=== PATIENT | female | born 1930 | race Caucasian/White ===

== ENCOUNTER 2016-04-01 12:06 | Emergency (ER) | payer MEDICARE, BC ==
[2016-04-01 12:18] VITALS: RESP 18; TEMP 97.9
[2016-04-01 13:41] VITALS: BP 112/64; PULSE 60; O2SAT 92
== END 2016-04-01 13:30 | DRG 556 ==
LOC: ED 12:06
DX: M25.552 Pain in left hip (principal)
CPT/HCPCS: 73502; 99282; 99283

== ENCOUNTER 2016-05-13 20:08 | Emergency (ER) | payer MEDICARE, BC ==
[2016-05-13 20:33] VITALS: RESP 18; TEMP 97.8
[2016-05-13 20:45] LABS: BASOPHILS % (AUTO) 1 % (0-3); EOSINOPHILS % (AUTO) 2 % (0-9); HEMATOCRIT 43 % (35-47); MEAN CORPUSCULAR HGB CONC 32.3 gm/dl (32.0-36.0); MEAN CORPUSCULAR VOLUME 95 fL (81-99); NEUTROPHILS % (AUTO) 45.1 % (37-80)
[2016-05-13 20:48] LABS: CALCIUM 8.7 mg/dl (8.5-10.1); POTASSIUM 4.1 mMol/L (3.5-5.1)
[2016-05-13] MEDS ORDERED: APAP/HYDROCODONE 325/5 TAB PO ONE (21:14)
[2016-05-13] MEDS ORDERED: APAP/HYDROCODONE 325/5 TAB ONE (21:16)
[2016-05-13 21:41] VITALS: BP 135/64; PULSE 80; O2SAT 91
== END 2016-05-13 21:33 | DRG 605 ==
LOC: ED 20:08
DX: S00.03XA Contusion of scalp, initial encounter (principal); S00.81XA Abrasion of other part of head, initial encounter; W01.0XXA Fall on same level from slipping, tripping and stumbling without subsequent striking against object, initial encounter
CPT/HCPCS: 36415; 70450; 80048; 85025; 99284

== ENCOUNTER 2016-10-17 18:55 | Emergency (ER) | payer MEDICARE, BC ==
[2016-10-17 19:17] VITALS: RESP 18; TEMP 98.6; O2SAT 93
[2016-10-17 20:50] VITALS: BP 129/64; PULSE 62
== END 2016-10-17 20:23 | DRG 923 ==
LOC: ED 18:55
DX: Z04.3 Encounter for examination and observation following other accident (principal); R53.1 Weakness; W19.XXXA Unspecified fall, initial encounter
CPT/HCPCS: 73070; 99282; 99283